=== PATIENT | male | born 1960 | race Caucasian/White ===

== ENCOUNTER 2017-01-14 09:20 | Emergency (ER) | payer OTHER, BC ==
[~2017-01-14 09:20] MED LIST: NORCO1 TAB
== END 2017-01-14 09:41 | disposition home or self-care (01) ==
LOC: ER 09:20
DX: M25.561 Pain in right knee (principal); M54.9 Dorsalgia, unspecified; I10 Essential (primary) hypertension; Z85.72 Personal history of non-Hodgkin lymphomas; W19.XXXA Unspecified fall, initial encounter
CPT/HCPCS: 72170; 73502-LT; 73560-RT; 99284